=== PATIENT | female | born 1985 | race Caucasian/White ===

== ENCOUNTER 2019-03-30 14:44 | Outpatient (REF) | payer BC, SELFPAY ==
[2019-03-31 13:01] LABS: Chlamydia Result Negative; GC Result Negative; Specimen Description CERVIX
== END 2019-03-30 15:04 ==
LOC: LBN 14:44
PROVIDERS: Visit Provider Nurse Practitioner Family
DX: Z11.3 Encounter for screening for infections with a predominantly sexual mode of transmission (principal)
CPT/HCPCS: 87491; 87591

== ENCOUNTER 2019-05-19 17:20 | Outpatient (REF) | payer BC, SELFPAY | END 2019-05-19 17:40 | LOC: LBN 17:20 | PROVIDERS: Visit Provider Advanced Practice Midwife | DX: N39.0 Urinary tract infection, site not specified (principal) | CPT/HCPCS: 87077; 87086; 87186 ==

== ENCOUNTER 2019-09-15 16:41 | Outpatient (REF) | payer BC, SELFPAY ==
[2019-09-17 14:19] LABS: Chlamydia Result Negative (Negative); GC Result Negative (Negative)
== END 2019-09-15 17:01 ==
LOC: LBN 16:41
PROVIDERS: Visit Provider Advanced Practice Midwife
DX: K62.89 Other specified diseases of anus and rectum (principal); Z11.3 Encounter for screening for infections with a predominantly sexual mode of transmission
CPT/HCPCS: 87491; 87591; 87480; 87510; 87660

== ENCOUNTER 2023-02-03 03:12 | Outpatient (CLI) | payer BC, SELFPAY ==
[2023-02-03 13:48] LABS: TSH (W/Ref FT4) 1.23 uIU/mL (0.36-3.74)
[2023-02-03 21:35] LABS: FSH 1.6 mIU/mL (See Note)
[2023-02-04 17:46] LABS: Antimullerian Hormone 1.3 ng/mL (0.15-7.5)
== END 2023-02-03 03:13 | disposition home or self-care (01) ==
LOC: LBO 03:12
PROVIDERS: Visit Provider Nurse Practitioner Women's Health
DX: Z32.02 Encounter for pregnancy test, result negative (principal); Z31.69 Encounter for other general counseling and advice on procreation; Z31.41 Encounter for fertility testing
CPT/HCPCS: 36415; 83001; 83520; 84443

== ENCOUNTER 2023-03-27 04:14 | Outpatient (CLI) | payer BC, SELFPAY | END 2023-03-27 04:15 | disposition home or self-care (01) | LOC: LBO 04:14 | PROVIDERS: Visit Provider Advanced Practice Midwife | DX: O03.9 Complete or unspecified spontaneous abortion without complication (principal) | CPT/HCPCS: 36415; 86850; 86900; 86901 ==

== ENCOUNTER 2023-03-28 10:32 | Day surgery (SDC) | payer BC, SELFPAY ==
[2023-03-28 10:36] VITALS: BP 112/71; PULSE 57; RESP 16; TEMP 36.4; O2SAT 100
[2023-03-28] MEDS: Lactated Ringers 1,000 ML 125 ML IV (11:00)
[2023-03-28] MEDS: DOXYCYCLINE 100 MG in Normal Saline 100 ML IVPB (11:29)
[2023-03-28 11:38] LABS: HCT 38.7 % (36.0-46.0); MCH 31.4 pg (27.0-33.0); MCHC 33.6 % (32.0-36.0); MCV 94 fL (80-95); MPV 9.4 fL (8.0-11.0); Platelet Count 248 10^3/uL (130-400); RBC 4.14 10^6/uL (3.93-5.22); RDW 13.1 % (11.7-14.6); RDW-SD 44.8 fL; WBC 5.61 10^3/uL (4.4-10.8)
--- NOTE | 2023-03-28 12:20 | POCSPONT_PTH ---
PATIENT: Nadine Giordano LOC: [facility] U#:[id number] AGE/SX: 37/F ROOM: RE03/28/[address]: Mee Antonio DO : 1985 BED: DIS: 03/28/2023 SPEC #: [id number] RECD: 03/28/23 13:03 STATUS: CAREN RE #: [id number] LOLLY: 03/28/23 12:[address]: Mee Antonio DEPT: Surgical Specimen RECD BY: Tessa Esparza ENTERED: 03/28/23 13:04 SP TYPE: POCSPONT AMBIKA DR: None Tissues: 1 - ,SPONTANEOUS Procedures: GROSS AND MICRO LEVEL 4 Comments: [id number]
[2023-03-28 12:37] VITALS: BP 108/55; PULSE 57; RESP 13; TEMP 36.7; O2SAT 96
--- NOTE | 2023-03-28 12:40 | ROE_ITS ---
Date of service: 03/28/23 Time of Service: 12:40 Operative Note Operative Note DATE OF PROCEDURE: 03/28/23 PRE-OP DIAGNOSIS: Missed POST-OP DIAGNOSIS: same PROCEDURE: Dilation and curettage with suction SURGEON: Mee Antonio ANESTHESIA TYPE: General:No Airway Refer to Anesthesia Record ESTIMATED BLOOD LOSS: 50 PATHOLOGY: other (Uterine contents) COMPLICATIONS: None Patient was transported to: same day Patient's condition: stable Indications: Missed , 11-week gestational age, 7 weeks 5 days nonviable fetus by ultrasound. Multiple uterine fibroids Findings: Globular bulky fibroid uterus Procedure Description: After full informed consent was obtained, patient was taken the operating suite with IV running. She is placed in dorsal supine position and general anesthesia administered via LMA. She was then placed on modified dorsolithotomy position in yellowfin stirrups with pneumatic compression stockings for DVT prophylaxis. She received doxycycline 100 mg IV. She was then prepped and draped in the usual sterile fashion. Exam under anesthesia reveals a cervix that was slightly dilated and a uterus that was bulky and multiloculated consistent with her known uterine fibroids. At this point speculum was inserted into the posterior vaginal vault and an Allis clamp used to grasp the anterior lip of the cervix. Cervical os easily dilated to the point that an 8 [place] suction curette could be passed with ease. With gentle suction curettage the uterine cavity was emptied of its contents. Sharp curettage was performed with a small banjo curette and a subsequent suction curettage was performed. There was moderate tissue return. At the completion of the procedure, uterus was firm, contracted, midline, and consistent with her known uterine fibroids. She was then returned to the dorsal supine position and awoke from anesthesia with ease. Sponge lap and needle counts were correct x2. She was taken the postanesthesia care unit in stable condition. EBL: 50 mL Pathology: Uterine contents for examination Findings: Known globular fibroid uterus, and moderate products of conception. Complications: None apparent. Fluids: Crystalloid per anesthesia
[2023-03-28 12:42] VITALS: BP 113/53; PULSE 48; RESP 13; TEMP 36.7; O2SAT 96
[2023-03-28 12:47] VITALS: BP 106/60; PULSE 52; RESP 14; TEMP 36.7; O2SAT 97
[2023-03-28 12:54] VITALS: BP 103/60; PULSE 52; RESP 18; TEMP 36.4; O2SAT 97
--- NOTE | 2023-03-28 13:30 | W.ANESPOSTOP ---
Postoperative Evaluation Date, Time and Location Date Performed: 03/28/23 Time Performed: 13:30 Patient Location: Day Surgery Unit Vital Signs Most Recent Imported Vital Signs: Most Recent Vital Signs Temp Pulse Resp BP Pulse Ox 36.4 C L 52 L 18 103/60 97 03/28/23 12:54 03/28/23 12:54 03/28/23 12:54 03/28/23 12:54 03/28/23 12:54 Pain Score Most Recent Pain Score: Most Recent Pain Score Pain Level 2 03/28/23 12:54 Assessment Mental Status: Awake (Alert & Oriented to Patient Baseline) Airway and Respiratory Function: Patent airway with normal (patient baseline) respiratory exam Cardiovascular Function: Hemodynamically Stable Hydration Status: Adequately Hydrated Nausea & Vomiting: No Nausea or Vomiting Pain: Pain is tolerable per patient Peripheral Nerve Block: Patient did not receive a nerve block
[2023-03-28 13:40] VITALS: BP 108/64; PULSE 54; RESP 18; TEMP 36.4; O2SAT 98
== END 2023-03-28 14:16 | disposition home or self-care (01) ==
PROVIDERS: Visit Provider Obstetrics & Gynecology
PROC: (CPT 59841; principal; 2023-03-28 12:00)
DX: O02.1 Missed abortion (principal); Z3A.11 11 weeks gestation of pregnancy
CPT/HCPCS: 59820; 36415; 85027; 86850; 86900; 86901; 88305; J1100; J2001; J2250; J2405; J2704; J3010